=== PATIENT | male | born 1955 ===

== ENCOUNTER 2018-09-21 12:12 | Emergency (ER) | payer OTHER ==
[~2018-09-21] VITALS: Ht 185.4 cm; Wt 86.2 kg
== END 2018-09-21 15:51 | disposition home or self-care (01) ==
LOC: ER 12:12
DX: G51.0 Bell's palsy (principal)

== ENCOUNTER 2019-04-30 10:44 | Outpatient (CLI) | payer OTHER | END 2019-04-30 10:48 | disposition home or self-care (01) | LOC: RAD 10:44 | DX: J44.9 Chronic obstructive pulmonary disease, unspecified (principal); I10 Essential (primary) hypertension ==